=== PATIENT | male | born 1945 | race Caucasian/White ===

== ENCOUNTER → 2016-05-27 | Outpatient (CLI) | payer MEDICARE, BC ==
[~2016-05-27] MED LIST: ALPRAZOLAM1 MG ORAL; NORCO 5-325 TA1 EACH PO
--- NOTE | 2016-05-27 10:42 | Diagnostic Imaging Report ---
Indications:TRAUMA Technique: Three or 4 views of the left elbow Comparison: None Findings:No acute fractures. No dislocations. Joint spaces are preserved. No effusion Impression:Negative
--- NOTE | 2016-05-27 13:35 | Diagnostic Imaging Report ---
Indication: COUGH Technique: 2 views of the chest Comparison: none. Findings: Lungs and pleural spaces are clear. Heart size is normal. Bones are unremarkable. The aorta is elongated and calcified. There are degenerative changes of the thoracic spine. Lungs are somewhat hyperinflated Impression: No acute process Mild hyperinflation, possibly COPD changes
== END | disposition home or self-care (01) ==
LOC: RAD 09:33
DX: R05 Cough (principal); S59.902A Unspecified injury of left elbow, initial encounter; X58.XXXA Exposure to other specified factors, initial encounter; Y92.9 Unspecified place or not applicable
CPT/HCPCS: 71020

== ENCOUNTER 2018-06-01 17:18 | Inpatient (IN) | payer MEDICARE, BC ==
[~2018-06-01] VITALS: Ht 177.8 cm; Wt 77.3 kg
[2018-06-01] MEDS ORDERED: KEPPRA500 M4 ORAL (17:20)
[2018-06-01 17:25] VITALS: BP 113/72
--- NOTE | 2018-06-01 17:25 | NUR ---
ED Nurse Note: PT BROUGHT IN BY R58 FROM HOME. PER EMS, PT HAD A WITNESSED SEIZURE AT HOME. EMS ADMINISTERED VERSED 5MG EN ROUTE. PT CONFUSED UPON ARRIVAL BUT ANSWERING QUESTIONS. VSS. RR24 @ 96% O2 SATURATION. SEIZURE PROTOCOL STARTED.
[2018-06-01] MEDS ORDERED: levETIRAcetam 500 MG in D5W 110 ML IV ONE (17:30)
--- NOTE | 2018-06-01 17:56 | NUR ---
ED Nurse Note: PT IS NOW MORE ALERT: AOX3. PT ABLE TO ANSWER QUESTIONS MORE EASILY. STILL NOT ORIENTED TO TIME BUT IS AWARE OF NAME, DATE, PLACE, AND SITUATION.
[2018-06-01 18:17] LABS: HEMATOCRIT 36.6 % (42.0-52.0); HEMOGLOBIN 13.2 G/DL (14.2-18.0); MEAN CORPUSCULAR VOLUME 97 FL (80-99); PLATELET COUNT 81 K/UL (150-450); RED BLOOD COUNT 3.76 M/UL (4.70-6.10); RED CELL DISTRIBUTION WIDTH 12.3 % (11.6-14.8); WHITE BLOOD COUNT 12.2 K/UL (4.8-10.8)
--- NOTE | 2018-06-01 18:39 | NUR ---
ED Nurse Note: PT AWARE URINE SAMPLE IS NEEDED. URINAL LEFT AT BEDSIDE.
[2018-06-01 18:41] LABS: ANION GAP 14 mmol/L (5-15); BLOOD UREA NITROGEN 48 mg/dL (7-18); CARBON DIOXIDE 23 MMOL/L (21-32); CHLORIDE 103 MMOL/L (98-107); CREATININE 1.1 MG/DL (0.55-1.30); POTASSIUM 4.1 MMOL/L (3.5-5.1); SODIUM 140 MMOL/L (136-145)
[2018-06-01 18:46] LABS: ALANINE AMINOTRANSFERASE 24 U/L (12-78); ALKALINE PHOSPHATASE 57 U/L (46-116); ASPARTATE AMINO TRANSFERASE 8 U/L (15-37); BILIRUBIN,TOTAL 0.4 MG/DL (0.2-1.0)
--- NOTE | 2018-06-01 19:05 | NUR ---
ED Nurse Note: report received from mele sandoval , pt vs stable at bedside, awaiting bed assignment
[2018-06-01 20:04] LABS: APPEARANCE,URINE SLIGHTLY CLOUDY; BILIRUBIN, URINE NEGATIVE (NEGATIVE); COLOR,URINE PALE YELLOW; GLUCOSE, URINE (UA) 3+ (NEGATIVE); KETONES,URINE 1+ (NEGATIVE); LEUKOCYTE ESTERASE ,URINE 3+ (NEGATIVE); NITRITE,URINE NEGATIVE (NEGATIVE); PH,URINE 5 (4.5-8.0); PROTEIN,URINE 2+ (NEGATIVE); UROBILINOGEN,URINE NORMAL MG/DL (0.0-1.0)
--- NOTE | 2018-06-01 20:06 | Emergency Room Report ---
History of Present Illness General Chief Complaint: Seizure Source: Family Member, Medical Record Present Illness HPI Patient is a 72-year-old male brought in by EMS after witnessed seizure. Patient had prior history of seizure disorder. Patient had prior craniectomy for glioblastoma. He was noted to be taking Keppra for seizures. Seizure was noted to be tonic-clonic. Patient had been noted to be postictal. Patient had reportedly been compliant with his medications.Patient had been followed at [facility] and had previous brain surgery. Allergies: Coded Allergies: No Known Allergies (Unverified , 06/01/18) Patient History Past Medical History: see triage record Reviewed Nursing Documentation: PMH: Agreed; PSxH: Agreed Nursing Documentation-PMH Past Medical History: No History, Except For Hx Hypertension: Yes Hx Seizures: Yes - brain tumor Review of Systems All Other Systems: negative except mentioned in HPI Physical Exam Vital Signs Date Time Temp Pulse Resp B/P (MAP) Pulse Ox O2 Delivery O2 Flow Rate FiO2 06/01/18 17:17 97.9 86 18 115/68 100 Room Air Sp02 EP Interpretation: reviewed, normal General Appearance: normal inspection, alert, Chronically Ill Head: atraumatic ENT: normal ENT inspection, normal voice Neck: normal inspection, supple, no bony tend, limited range of motion Respiratory: normal inspection, no respiratory distress, no retraction Cardiovascular #1: regular rate, rhythm, no edema Gastrointestinal: normal inspection, normal bowel sounds, non tender, soft, no guarding, no hernia Genitourinary: no CVA tenderness Musculoskeletal: normal inspection, back normal, normal range of motion Neurologic: normal inspection, alert, responsive, speech normal, motor weakness - slurred speech Psychiatric: normal inspection, judgement/insight normal, mood/affect normal Skin: normal inspection, no rash Medical Decision Making Diagnostic Impression: Primary Impression: Epileptic seizure, generalized Additional Impressions: Glioblastoma Breakthrough seizure ER Course Patient presented for seizure. Differential diagnosis include was not limited to electrolyte abnormality, brain tumor, encephalitis, meningitis among others. Because of complexity of patient's case laboratory testing and imaging studies were ordered. CT imaging of the head read by radiology showed multiple small parietal lesions. These do not appear to have any localization consistent with hemorrhage per radiologistThere is no evident mass- effect.Patient was loaded with IV Keppra and was given IV fluids. Dr. Mason Hickman was contacted for inpatient management due to primary care Labs Test 06/01/18 17:30 06/01/18 19:45 White Blood Count 12.2 K/UL (4.8-10.8) Red Blood Count 3.76 M/UL (4.70-6.10) Hemoglobin 13.2 G/DL (14.2-18.0) Hematocrit 36.6 % (42.0-52.0) Mean Corpuscular Volume 97 FL (80-99) Mean Corpuscular Hemoglobin 35.2 PG (27.0-31.0) Mean Corpuscular Hemoglobin Concent 36.1 G/DL (32.0-36.0) Red Cell Distribution Width 12.3 % (11.6-14.8) Platelet Count 81 K/UL (150-450) Mean Platelet Volume 5.5 FL (6.5-10.1) Neutrophils (%) (Auto) % (45.0-75.0) Lymphocytes (%) (Auto) % (20.0-45.0) Monocytes (%) (Auto) % (1.0-10.0) Eosinophils (%) (Auto) % (0.0-3.0) Basophils (%) (Auto) % (0.0-2.0) Differential Total Cells Counted 100 Neutrophils % (Manual) 64 % (45-75) Lymphocytes % (Manual) 27 % (20-45) Monocytes % (Manual) 8 % (1-10) Eosinophils % (Manual) 0 % (0-3) Basophils % (Manual) 1 % (0-2) Band Neutrophils 0 % (0-8) Platelet Estimate Decreased Platelet Morphology Normal Red Blood Cell Morphology Normal Sodium Level 140 MMOL/L (136-145) Potassium Level 4.1 MMOL/L (3.5-5.1) Chloride Level 103 MMOL/L (98-107) Carbon Dioxide Level 23 MMOL/L (21-32) Anion Gap 14 mmol/L (5-15) Blood Urea Nitrogen 48 mg/dL (7-18) Creatinine 1.1 MG/DL (0.55-1.30) Estimat Glomerular Filtration Rate mL/min (>60) Glucose Level 190 MG/DL (74-106) Calcium Level 9.0 MG/DL (8.5-10.1) Total Bilirubin 0.4 MG/DL (0.2-1.0) Aspartate Amino Transf (AST/SGOT) 8 U/L (15-37) Alanine Aminotransferase (ALT/SGPT) 24 U/L (12-78) Alkaline Phosphatase 57 U/L (46-116) Total Protein 6.0 G/DL (6.4-8.2) Albumin 3.0 G/DL (3.4-5.0) Globulin 3.0 g/dL Albumin/Globulin Ratio 1.0 (1.0-2.7) Phenytoin (Dilantin) Level < 0.5 ug/mL (10-20) Urine Color Pale yellow Urine Appearance Slightly cloudy Urine pH 5 (4.5-8.0) Urine Specific [place] 1.020 (1.005-1.035) Urine Protein 2+ (NEGATIVE) Urine Glucose (UA) 3+ (NEGATIVE) Urine Ketones 1+ (NEGATIVE) Urine Blood 4+ (NEGATIVE) Urine Nitrite Negative (NEGATIVE) Urine Bilirubin Negative (NEGATIVE) Urine Urobilinogen Normal MG/DL (0.0-1.0) Urine Leukocyte Esterase 3+ (NEGATIVE) Urine RBC 5-10 /HPF (0 - 0) Urine WBC 5-10 /HPF (0 - 0) Urine Squamous Epithelial Cells None /LPF (NONE/OCC) Urine Bacteria Moderate /HPF (NONE) Urine Opiates Screen Negative (NEGATIVE) Urine Barbiturates Screen Negative (NEGATIVE) Phencyclidine (PCP) Screen Negative (NEGATIVE) Urine Amphetamines Screen Negative (NEGATIVE) Urine Benzodiazepines Screen Positive (NEGATIVE) Urine Cocaine Screen Negative (NEGATIVE) Urine Marijuana (THC) Screen Negative (NEGATIVE) Last Vital Signs Date Time Temp Pulse Resp B/P (MAP) Pulse Ox O2 Delivery O2 Flow Rate FiO2 06/01/18 17:25 98.2 72 22 113/72 96 Room Air Status: unchanged Disposition: PLACE IN OBSERVATION Condition: Stable Referrals: Mason Hickman MD (PCP) Dilip Morgan MD Jun 01, 2018 20:06
--- NOTE | 2018-06-01 21:40 | NUR ---
ED Nurse Note: attempted to call for telephone unable to report
--- NOTE | 2018-06-01 21:46 | NUR ---
ED Nurse Note: TELEPHONE REPORT GIVE TO VLAD MCKENZIE.
--- NOTE | 2018-06-01 22:00 | NUR ---
ED Nurse Note: PT BROUGHT UP WITH CARIDAC MONITOR ASSISTED BY MARGARET RN AND VLAD SIMMS. ALL BELONING GIVEN TO PT, PT IS AOX4, VSS, ROOM AIR 100%
--- NOTE | 2018-06-01 22:10 | NUR ---
NURSE NOTES: Pt transferred safely to floor from ED. Pt belongings verified. monitor tech applied and pt is sinus rhythm in the 70s. Pt is lying comfortably in semi-fowlers with no signs of distress. Pt is A+Ox3, has difficulty speaking, delayed, but denies pain/SOB. Respirations are even and unlabored on room air. IV site is patent, intact, and saline locked. Bed is at lowest position, brakes engaged, siderails x2, bed alarm on, and call light within reach. Pt is in stable condition; will continue to monitor.
--- NOTE | 2018-06-01 22:34 | NUR ---
NURSE NOTES: Left message with Dr. Hickman regarding admission orders; awaiting response.
[2018-06-01] MEDS: 1/2NS w/KCl 20mEq 1000ml 1,000 ML IV SCH (23:53)
[2018-06-02] VITALS: BP 132/78
--- NOTE | 2018-06-02 00:54 | NUR ---
NURSE NOTES: Pt is trying to get out of bed. States "I need to pee, but can't pee!" Attempted to help patient to walk, but pt is too weak and is too big a fall risk. Told patient he should not get up from bed for safety reasons. Pt continues to try to get out of bed. Bladder scan shows 700 ml urine in the bladder. Left message with Dr. Hickman to make him aware of his behavior and bladder scan results; awaiting response.
--- NOTE | 2018-06-02 01:04 | NUR ---
NURSE NOTES: Pt is agitated and anxious to urinate. Keeps trying to get out of bed. Left second message with Dr. Hickman; awaiting response.
--- NOTE | 2018-06-02 01:06 | NUR ---
NURSE NOTES: Per MD, insert molina catheter. Order noted and carried out.
--- NOTE | 2018-06-02 02:00 | NUR ---
NURSE NOTES: Left message with Dr. Hickman regarding no DVT prophylaxis. Awaiting response.
[2018-06-02 04:00] VITALS: BP 150/87
--- NOTE | 2018-06-02 07:16 | NUR ---
HAND-OFF: Report given to VLAD Mcgovern. Pt is in stable condition; plan of care endorsed.
--- NOTE | 2018-06-02 07:28 | NUR ---
NURSE NOTES: Report received from Christine/ VLAD. patient in stable condition, no distress/SOB noted. call light in reach, bed in low position, All safety measure in place. will continue plan of care.
[2018-06-02 08:00] VITALS: BP 135/79
--- NOTE | 2018-06-02 08:51 | Diagnostic Imaging Report ---
Indications: Altered mental state, seizure Technique: Spiral acquisitions obtained through the brain. Angled axial and coronal 5 x 5 mm slices were reconstructed. Total dose length product 1512.17 mGycm. CTDI vol(s) 70.38 mGy. Dose reduction achieved using automated exposure control Comparison: 05/16/2013. Findings: There is a left parietal craniotomy flap. Thin rim of low attenuation material is seen on the deep surface of the flap. There is underlying posterior parietal encephalomalacia, resulting in ex vacuo dilatation of the atrium and posterior temporal horn of the left lateral ventricle. There is some slight cortical encephalomalacia in the high right parietal lobe. There is slight high attenuation in this area which may either be cortical or within the sulci. These are new findings since the prior study. No mass effect. No midline shift. Otherwise normal malhotra-white differentiation. Streak artifact from dental amalgam obscures much of the posterior fossa structures. There is a subcutaneous 3 cm lesion in the occipital region midline. This is also present on the prior exam. Previously demonstrated right periorbital scalp soft tissue contusion is no longer evident. There is minimal mucosal thickening within the nasal fossa. The sinuses are otherwise clear. There is evidence of prior bilateral cataract surgery. The mastoids are clear. Impression: Foci of high attenuation in the high right parietal region noted adjacent to a small focal area of encephalomalacia. Findings could represent calcification, but could also represent small foci of subarachnoid or cortical parenchymal hemorrhage. Recommend further evaluation with MRI and or comparison with any more recent CT studies which may be available. No significant mass effect Postsurgical changes of the left parietal region, with craniotomy flap and underlying encephalomalacia. Correlate with surgical history. Probable occipital midline epidermal inclusion cyst, also evident previously This agrees with the preliminary interpretation provided overnight by [facility] telerad[facility] service. The CT scanner at [facility] is accredited by the [employer] and the scans are performed using protocols designed to limit radiation exposure to as low as reasonably achievable to attain images of sufficient resolution adequate for diagnostic evaluation.
[2018-06-02] MEDS: 1/2NS w/KCl 20mEq 1000ml 1,000 ML IV SCH ×2 (09:16→18:50)
--- NOTE | 2018-06-02 09:25 | NUR ---
NURSE NOTES: Patient had seizure for 3 sec. patient is alert and oriented x2. vital sign is stable.
--- NOTE | 2018-06-02 09:35 | NUR ---
NURSE NOTES: Called Dr. Hickman and left a message with the marketing secretary regarding seizure activity.
--- NOTE | 2018-06-02 10:10 | NUR ---
NURSE NOTES: Dr. Hickman called, but we lost the line and I wasn't able to talk to him. I called back and left message.
--- NOTE | 2018-06-02 10:20 | NUR ---
NURSE NOTES: Patient had [address] Hickman and left message. Addendum: 06/02/18 at 1031 by Isabelle Coates RN wrong time entry
--- NOTE | 2018-06-02 10:29 | NUR ---
NURSE NOTES: Talked with Dr. Hickman and Salvador 500mg IV x1, No ativan PRN at this time. No DVT PPX. Patient is in stable condition. Will continue plan of care.
[2018-06-02] MEDS ORDERED: levETIRAcetam 500mg/NS100ml 100 ML IVPB ONE (11:00)
[2018-06-02] MEDS: NovoLOG Insulin Flexpen SUBQ SCH ×3 (11:30→22:09)
[2018-06-02] MEDS ORDERED: NovoLOG Insulin Flexpen SUBQ SCH (11:50)
[2018-06-02 12:00] VITALS: BP 132/77
--- NOTE | 2018-06-02 13:18 | NUR ---
NURSE NOTES: told that patient is still having seizure like 4 times an hour but less intensity, duration like [address] Hickman's office and left message.
--- NOTE | 2018-06-02 13:36 | NUR ---
NURSE NOTES: Talked with Dr. Hickman and new orders carried out. Will continue plan of care.
--- NOTE | 2018-06-02 13:39 | NUR ---
CASE MANAGEMENT:REVIEW 72 YR OLD MALE BIBA FROM HOME CC; WITNESSED SEIZURE BY SI: BREAKTHROUGH SEIZURE 97.8 86 18 115/68 100% ON RA WBC+12.2 DILANTIN > 0.5 IS: 1L NS BOLUS IV KEPPRA CT HEAD BLOOD CX SEIZURE PRECAUTION ; TELEMETRY STATUS ; INTERQUAL MET FOR OBSERVATION
--- NOTE | 2018-06-02 14:00 | NUR ---
NURSE NOTES: Prudence told me while patient was trying to get up from the bed and the right leg was stuck in the side rail. Assessed patient and noted with right fairchild skin abrasion. Photo was taken. Patient is confused and is at the bedside. asked for Wheelchair and I told her that he can not have w/c due to seizure activity. Will continue plan of care. Addendum: 06/02/18 at 1501 by JACKI TORO RN Time for 1430.
--- NOTE | 2018-06-02 14:50 | NUR ---
NURSE NOTES: Called Dr. Hickman's office for agitation and paged him.
[2018-06-02] MEDS ORDERED: levETIRAcetam 1,000mg/NS100ml 100 ML IVPB SCH (15:00)
--- NOTE | 2018-06-02 15:15 | NUR ---
NURSE NOTES: Talked with Dr. Hickman. Ativan 0.5mg IV x1 is ordered. Will continue plan of care.
[2018-06-02] MEDS ORDERED: LORazepam Inj 2mg/ml 1ml IV SCH (15:19)
--- NOTE | 2018-06-02 15:25 | NUR ---
NURSE NOTES: Ativan was given as ordered. Will continue plan of care.
[2018-06-02 16:00] VITALS: BP 147/85
--- NOTE | 2018-06-02 19:35 | NUR ---
HAND-OFF: Report given to VLAD Foster. Soham is in stble condition. Endorsed plan of care.
[2018-06-02 20:00] VITALS: BP 145/81
--- NOTE | 2018-06-02 20:00 | NUR ---
NURSE NOTES: recieved pt, pt very agitated and trying to get out of bed. no acute distress noted. fall precaution in place. will continue to monitor.
--- NOTE | 2018-06-02 20:10 | NUR ---
NURSE NOTES: Called Dr. Hickman for a possible restraint order since patient is observed to be repeatedly attempting to get out of bed. Awaiting callback.
[2018-06-02] MEDS: levETIRAcetam 1,500 MG in D5W 95 ML IV SCH (22:07)
[2018-06-03] VITALS: BP 126/76
--- NOTE | 2018-06-03 | History and Physical Report ---
DATE OF ADMISSION: 06/01/2018 REASON FOR ADMISSION: Breakthrough seizures. HISTORY OF PRESENT ILLNESS: This is a 72-year-old male with the diagnosis of glioblastoma multiforme from approximately six months ago. He underwent surgery and radiation therapy. Most recently, he is on oral chemotherapy, but that has been on hold due to lower platelet count. He also was noted on his most recent imaging study to have progression of his tumor. He was started on Keppra several months ago following a seizure event. He has not had any breakthrough seizures during the last month or more, but did have an event early this evening prompting transfer to the emergency room. The patient's states that he has been compliant with medications. His seizure was described as tonic-clonic and similar to prior witnessed event. PAST MEDICAL HISTORY: Includes hypertension, CLL, history of melanoma of the skin, osteoarthritis, degenerative disk disease, and hyperlipidemia. Insulin-requiring diabetes mellitus. ALLERGIES: None. FAMILY HISTORY: Notable for leukemia. SOCIAL HISTORY: Negative for smoking, alcohol, or substance abuse. MEDICATIONS: Reviewed and reconciled. REVIEW OF SYSTEMS: No fevers or chills. No dysuria. Occasional incontinence. No change in bowel habits. No history of thyroid disorder. Most recent echocardiogram with normal ejection fraction and no significant valvular disease. Prior stress tests have been low likelihood for flow-limiting coronary artery disease. There is no history of asthma or abnormal blood clotting. He has had low platelet count with his recent chemotherapeutic drugs. PHYSICAL EXAMINATION: VITAL SIGNS: Blood pressure 115/68, pulse 86, and respirations 18. Afebrile. Male pattern balding. HEENT: Conjunctivae pink. Fundi difficult to visualize. The patient is unable to fully cooperate with extraocular movement evaluation. Oropharynx is clear. NECK: Supple. Jugular venous pressure normal. LUNGS: Clear. CARDIAC: Regular. Normal S1, S2 with a fourth heart sound. ABDOMEN: Soft and nontender. EXTREMITIES: No edema. NEUROLOGIC: Reveals unsteady gait. Slow speech. Some confusion. LABORATORY DATA: Sodium 140, potassium 4.1, bicarbonate 23, BUN 48, and creatinine 1.1. Glucose 190. Albumin 3. White count 12.2, hemoglobin 13.2. CT scan of the brain reveals postsurgical changes on the left parietal area, some encephalomalacia. IMPRESSION: 1. Breakthrough seizures. 2. Mild dehydration and hypovolemia. 3. Prerenal azotemia. 4. Glioblastoma multiforme. 5. Hypertension. 6. History of chronic lymphocytic leukemia. PLAN: 1. Advance Keppra dosing. 2. IV lorazepam p.r.n. for status epilepticus. 3. Cautiously hydrate. 4. Discussed with neurologist, Dr. Jose Greene. We will review ongoing treatment options with his neurosurgeon at [facility]. Mason Hickman M.D. DR: LES JOB#: [id number] CC:
[2018-06-03] MEDS: LORazepam Inj 2mg/ml 1ml IV PRN ×2 (01:15→09:46)
--- NOTE | 2018-06-03 02:00 | Progress Note ---
DATE: 06/02/2018 INTERNAL MEDICINE PROGRESS NOTE SUBJECTIVE: The patient was seen and evaluated. is at the bedside earlier and on and off throughout the day. Case was also discussed by telephone with neurologist, Dr. Greene. The patient has had recurring episodes of breakthrough seizures despite loading with intravenous Keppra at an increased dose from his prior dose. He has frequent confusion and does not want to stay in bed. OBJECTIVE: VITAL SIGNS: Blood pressure 140/70, pulse 80, and respirations 20. NECK: Supple. Jugular venous pressure normal. LUNGS: Clear. CARDIAC: Regular. Normal S1, S2 with a fourth heart sound. ABDOMEN: Soft and nontender. EXTREMITIES: Without edema. NEUROLOGIC: Unchanged. IMPRESSION: 1. Tonic-clonic seizures due to glioblastoma multiforme. 2. History of CLL. 3. Thrombocytopenia due to chemotherapy. 4. Recovering dehydration and hypovolemia. 5. Encephalopathy. 6. Urinary retention. PLAN: 1. Additional intravenous Keppra with maintenance dose advancement. 2. Seizure precautions. 3. IV fluid hydration. 4. Check metabolic profile. 5. Outpatient neurosurgery follow up. 6. May give benzodiazepine dose for agitation. 7. Voiding trial to follow. Mason Hickman M.D. DR: JOSIANE JOB#: [id number] CC: JESSICA
--- NOTE | 2018-06-03 03:50 | NUR ---
NURSE NOTES: pt trying to get out of bed, this commercial real estate underwriter sitting next to pt to prevent any fall. no acute distress noted, will continue to monitor.
[2018-06-03 04:00] VITALS: BP 148/90
[2018-06-03] MEDS: 1/2NS w/KCl 20mEq 1000ml 1,000 ML IV SCH ×2 (04:48→20:33)
[2018-06-03] MEDS: NovoLOG Insulin Flexpen SUBQ SCH ×4 (05:46→21:00)
--- NOTE | 2018-06-03 07:26 | NUR ---
HAND-OFF: Report given to VLAD Jauregui.pt in bed. pt trying to get out of bed my entire shift. fall precautions in place. all needs met during my shift. will endorse care to incoming nurse
[2018-06-03 07:39] LABS: HEMATOCRIT 38.2 % (42.0-52.0); HEMOGLOBIN 14.3 G/DL (14.2-18.0); MEAN CORPUSCULAR VOLUME 96 FL (80-99); PLATELET COUNT 75 K/UL (150-450); RED BLOOD COUNT 3.99 M/UL (4.70-6.10); RED CELL DISTRIBUTION WIDTH 12.3 % (11.6-14.8); WHITE BLOOD COUNT 7.5 K/UL (4.8-10.8)
[2018-06-03 08:00] VITALS: BP 142/79
[2018-06-03 08:27] LABS: ALANINE AMINOTRANSFERASE 22 U/L (12-78); ALBUMIN 2.9 G/DL (3.4-5.0); ALBUMIN/GLOBULIN RATIO 0.9 (1.0-2.7); ALKALINE PHOSPHATASE 62 U/L (46-116); ANION GAP 9 mmol/L (5-15); ASPARTATE AMINO TRANSFERASE 14 U/L (15-37); BILIRUBIN,TOTAL 1.2 MG/DL (0.2-1.0); BLOOD UREA NITROGEN 11 mg/dL (7-18); CALCIUM 8.8 MG/DL (8.5-10.1); CARBON DIOXIDE 27 MMOL/L (21-32); CHLORIDE 103 MMOL/L (98-107); CREATININE 0.6 MG/DL (0.55-1.30); POTASSIUM 3.3 MMOL/L (3.5-5.1); SODIUM 139 MMOL/L (136-145)
[2018-06-03 08:44] LABS: BILIRUBIN,DIRECT 0.1 MG/DL (0.0-0.3)
[2018-06-03] MEDS: levETIRAcetam 1,500 MG in D5W 95 ML IV SCH ×2 (09:46→20:33)
[2018-06-03 16:00] VITALS: BP 135/75
--- NOTE | 2018-06-03 16:00 | NUR ---
NURSE NOTES: Discus with Dr Greene at bedside pt's repeated attempts to exit bed. Dr Greene agreed to write order for lopez restraint allowing pt to use his hands/arms but not exit bed. Restraints explained to at bedside during application. Good distal fns all extrem. no impingement to pt's respiration.
--- NOTE | 2018-06-03 16:09 | Consultation ---
Consult Note Consult Note [facility] NEUROLOGY CONSULTATION June 03, 2018 PRETZEL TWISTING MACHINE OPERATOR: Jose Greene M.D. REFERRING PHYSICIAN: Dr. Mason Hickman. HISTORY: Mr. Irvin Owen is a 72-year-old,right-handed, gentleman, who does have a past history of hypertension, hypertensive heart disease, benign prostatic hypertrophy, chronic lymphocytic leukemia, a skin melanoma status post resection in 2010 with remission, who also has a history of a stutter. He was functioning relatively well until [facility]2017, and on that day he was noted to have a sudden problem with expressing himself. Plans were to go to [place], and he went there with his family, but his family noted that he was having worsening of his language problems. As a result of that, he flew back to [place]. He was seen by Domi and Driss in their office on 01/06/2018, and was noted to have a significant aphasia. He was rushed into the [facility] Emergency Room where an MRI scan of the brain was done and revealed a large heterogeneous mass in the left periatrial white matter, with surrounding vasogenic edema. In addition, tumor infiltration of the body of the corpus callosum with satellite lesions in the right parietal and right occipital lobes was seen. A radiological diagnosis of multifocal glioma was made. He was then evaluated by the neurosurgical service, and on 01/07/2018 he was taken into the operation room by Drs. Daniel Reyes and Joel Solorzano. He had a left parietal craniotomy for resection of the tumor and it was felt that the tumor was most probably a glioblastoma. The surgery was uneventful. Following the surgeryhe was noted to have slight worsening of his language problems. He had not been noted to have any weakness or other neurological symptoms. I first saw him on 01/08/18, at that time, he had a severe receptive greater than expressive aphasia. He was unable to cooperate for formal mental status test because of the significant aphasia. He also had a mild right 7th central facial paresis, right finger extensor and iliopsoas weakness,andglobally diminisheddeep tendon reflexes that were slightly brisker on the right than on the left. He was then sent to [place] for rehabilitation. He did well with rehabilitation. He was also seen by Dr. Anurag Johnson who started him on a course of radiation therapy and chemotherapy. On 04/19/2018 he was noted to have a generalized tonic clonic seizure at home. The paramedics were called in and he was brought to the ER and admitted to the neurologic ICU. He had continuous EEG monitoring for 2 days and the EEG revealed "mild diffuse background slowing and left focal slowing." No inter-ictal phenomena were seen. He had been seizure-free on Keppra 1 G q 12 hours. On 06/01/2018 he had a generalized tonic clonic seizure at home. He was brought to [facility] and admitted. On 06/02/2018 he had a few more seizures. His dose of Keppra was increased to 1.5 G q 12 hours and he has been seizure-free for ~ 24 hours. He however has been very agitated and is getting Ativan for it which agitates him more, PAST MEDICAL HISTORY:Significant for hypertension, hypertensive heart disease, benign prostatic hypertrophy, chronic lymphocytic leukemia, skin melanoma-status post resection in 2010, a stutter, glioblastoma, tumor related seizure disorder. FAMILY HISTORY:Nothing significant, with no family history of tumors. PERSONAL HISTORY: Home:He lives with his . 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 Habits: He would have rare cigarettes and a rare drink of alcohol in the past. There is no history of any illicit drug use. PHYSICAL EXAMINATION: GENERAL: He is a well-developed, well-nourished, pleasant gentleman, lying in bed, in no acute distress. VITAL SIGNS: Pulse: 95 BP: 148/90 Respirations: 20 Temp: 97.2 NECK: No neck rigidity was observed. EENT: Benign. NEUROLOGICAL EXAMINATION: MENTAL STATUSEXAMINATION: He was awake but not completely alert. He was oriented to self and May 2018. He was able to recall 3/3 words immediately but could only remember 1/3 in 1 and 3 minutes. He was unable to remember any [place] presidents. He was unable to cooperate for further mental status testing. SPEECH:He had a mild dysarthria. LANGUAGE: He had amixed expressive > receptive aphasia. CRANIAL NERVEEXAMINATION: II: He did blink to threat in all dhillon, but he was unable to cooperate for confrontation testing. III, IV & : The external ocular movements were full and the pupils 3 mm in diameter, equal, round, regular, and reactive sluggishly to light. V: He had normal facial sensations and the temporales, masseters, and pterygoids functioned normally. VII: He had a right 7th central facial paresis. VIII: He was able to hear and had no nystagmus. IX: The palate moved symmetrically on phonation. X: He had no hoarseness of voice. XI: The sternocleidomastoids and trapezii functioned normally. XII: The tongue was in the midline without any fasciculations or atrophy. MOTOR SYSTEM:The tone was normal in all 4 extremities. Examination of muscle mass revealed no focal wasting. Examination of power revealedG5/5 power, except for G4/5 power in the right finger extensors and iliopsoas. SENSORYEXAMINATION: He responded appropriately to light touch. He was unable to cooperate for other sensory modalities. REFLEXES: 1++ on the right and 1+ on the left at the biceps, triceps, brachioradialis, and knees; 0 at both ankles. The plantar responses were flexor bilaterally. COORDINATION: He performed well on blrjtz-ji-[id number] testing. He was unable to perform fsyz-zu-oasi testing. STANCE: He stood up with support. GAIT: He dragged his right leg when he was made to take a few steps. DIAGNOSTIC IMPRESSION: 1. Mr. Irvin Owen is a 72-year-old,right-handed, gentleman, with a past history of hypertension, hypertensive heart disease, benign prostatic hypertrophy, chronic lymphocytic leukemia, and a skin melanoma, who has also had a stutter all his life. He suddenly had problems expressing himself and these problems worsened over the next few days. He was evaluated in the [facility] Emergency Room on 01/06/2018 with an MRI scan of the brain which revealed findings consistent with a relatively large left parietal glioma with surrounding vasogenic edema and satellite lesions in the right parietal and occipital lobes. He was taken into surgery on 01/07/2018 with near-complete resection of the tumor mass. The surgery was uneventful. He was then sent to [place] for rehabilitation. He did well with rehabilitation. He was also seen by Dr. Anurag Johnson who started him on a course of radiation therapy and chemotherapy. On 04/19/2018 he was noted to have a generalized tonic clonic seizure at home. He was brought to the , a continuous EEG monitoring for 2 days revealed "mild diffuse background slowing and~left focal slowing." No inter-ictal phenomena were seen. He was then seizure-free on Keppra 1 G q 12 hours. 2. On 06/01/2018 he had a generalized tonic clonic seizure at home. He was brought to [facility] and admitted. On 06/02/2018 he had a few more seizures. His dose of Keppra was increased to 1.5 G q 12 hours and he has been seizure-free for ~ 24 hours. 3. On neurological examination, at this time, he does have a mixed expressive > receptive aphasia. He also has significant cognitive dysfunction.He also has a right 7th central facial paresis, right finger extensor and iliopsoas weakness,andglobally diminisheddeep tendon reflexes that are slightly brisker on the right than on the left. 4. 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 5. He started to have breakthrough seizures on 06/01/08. RECOMMENDATIONS: 1. Agree with management thus far. 2. Management of brain tumor as per the patient's neurosurgeons and Dr. Johnson. 3. Continue Keppra 1.5 G q 12 hours. 4. Physical, occupational, speech and language therapy. 5. The patient will be observed closely, and depending on how he fares over the next day or so, further recommendations will be given. Thank you for entrusting me with the care of Mr. Owen. I shall follow him with you. Jose Greene M.D., M.S.P.H. Neurologist & Clinical Neurophysiologist Jose Greene MD Jun 03, 2018 16:09
--- NOTE | 2018-06-03 19:30 | NUR ---
NURSE NOTES: Got report from Casey Rn. Pt in stable condition. Denies any pain. No s/s of distress noted. Pt resting in bed comfortably. Lycoming vest on. Bed in low and locked position, call light within reach, bedside table within reach.Continue to monitor.
[2018-06-03 20:00] VITALS: BP 143/90
[2018-06-03] MEDS ORDERED: Tubing IV Secondary IV ONE (20:32)
[2018-06-03] MEDS ORDERED: 1/2NS w/KCl 20mEq 1000ml 1,000 ML IV SCH (22:45)
[2018-06-04] VITALS (7 sets, daily range): BP systolic 86–153; BP diastolic 53–90
[2018-06-04] MEDS: LORazepam Inj 2mg/ml 1ml IV PRN ×2 (00:04→05:58)
--- NOTE | 2018-06-04 01:30 | Progress Note ---
DATE: 06/03/2018 CARDIOLOGY AND INTERNAL MEDICINE PROGRESS NOTE SUBJECTIVE: The patient had a small seizure today that lasted a few seconds. It was witnessed by his only. The patient is still with agitation and confusion. The patient has not had any arrhythmias on the monitor. PHYSICAL EXAMINATION: VITAL SIGNS: Blood pressure 148/90, pulse 95, respiratory rate 20, afebrile. NECK: Supple. LUNGS: Clear. CARDIAC: Regular. Normal S1, S2 with a fourth heart sound. ABDOMEN: Soft. No edema. NEUROLOGIC: Motor exam reveals symmetric strength. Speech is with a mild dysarthria and expressive deficit. Gait is unsteady. LABORATORY DATA: White count 7.5, hemoglobin 14, potassium 3.3, magnesium 1.8. Albumin 2.9. B12 folate were normal. IMPRESSION: 1. Breakthrough seizures. 2. Glioblastoma multiforme. 3. Hypokalemia. 4. Chronic lymphocytic leukemia. 5. History of hypertension. 6. Urinary retention with hx of BPH. PLAN: 1. Seizure precautions. 2. Titrate Keppra. 3. Vitamin supplementation. 4. Replace potassium. 5. Voiding trial. 6. Mobilize and continue restraints for safety at times. Mason Hickman M.D. DR: CYNDIE JOB#: [id number] CC: JESSICA
[2018-06-04] MEDS: NovoLOG Insulin Flexpen SUBQ SCH ×4 (06:30→21:49)
--- NOTE | 2018-06-04 07:20 | NUR ---
HAND-OFF: Report given to Casey CHU. Endorsed plan of care.
--- NOTE | 2018-06-04 08:00 | NUR ---
NURSE NOTES: Pt awake/not alert/confused in bed, breathing easily on room air, denies SOB and denies pain at this time. Vital signs stable with SR at 87 on monitor. IV access right forearm with 1/2 NS + 20K running at 60 ml/hr. bilateral soft wrist in place with good distal functions. Bed left in low position, exit alarm set, side rails up x 3 and call light left near pt's hand.
[2018-06-04] MEDS: levETIRAcetam 1,500 MG in D5W 95 ML IV SCH ×2 (09:58→21:27)
[2018-06-04] MEDS: 1/2NS w/KCl 20mEq 1000ml 1,000 ML IV SCH (13:35)
--- NOTE | 2018-06-04 15:20 | Neurology Progress Note ---
Interim History Interim History Interim History Mr. Owen feels unwell. He is severely constipated and on the bedside commode. He has been seizure free. He continues to be confused, disoriented and agitated. He is unable to give me any further history. Review of Systems Neuro Review of Systems Unable to obtain. Objective Physical Exam Last Vital Signs Date Time Temp Pulse Resp B/P (MAP) Pulse Ox O2 Delivery O2 Flow Rate FiO2 06/04/18 13:50 97.5 111 20 142/89 (106) 96 06/03/18 21:00 Room Air Neurologic Exam Objective PHYSICAL EXAMINATION: GENERAL: He is a well-developed, well-nourished, pleasant gentleman, sitting up on a bedside commode, in no acute distress. HEAD: Normocephalic with left sided craniotomy defect. NECK: No neck rigidity was observed. EENT: Benign. NEUROLOGICAL EXAMINATION: MENTAL STATUSEXAMINATION: He was awake but not completely alert. He was oriented to self and May 2018. He was able to recall 3/3 words immediately but could only remember 1/3 in 1 and 3 minutes. He was unable to remember any [place] presidents. He was unable to cooperate for further mental status testing. SPEECH:He had a mild dysarthria. LANGUAGE: He had amixed expressive > receptive aphasia. CRANIAL NERVEEXAMINATION: II: He did blink to threat in all dhillon, but he was unable to cooperate for confrontation testing. III, IV & : The external ocular movements were full and the pupils 3 mm in diameter, equal, round, regular, and reactive sluggishly to light. V: He had normal facial sensations and the temporales, masseters, and pterygoids functioned normally. VII: He had a right 7th central facial paresis. VIII: He was able to hear and had no nystagmus. IX: The palate moved symmetrically on phonation. X: He had no hoarseness of voice. XI: The sternocleidomastoids and trapezii functioned normally. XII: The tongue was in the midline without any fasciculations or atrophy. MOTOR SYSTEM:The tone was normal in all 4 extremities. Examination of muscle mass revealed no focal wasting. Examination of power revealedG5/5 power, except for G4/5 power in the right finger extensors and iliopsoas. SENSORYEXAMINATION: He responded appropriately to light touch.He was unable to cooperate for other sensory modalities. REFLEXES: 1++ on the right and 1+ on the left at the biceps, triceps, brachioradialis, and knees; 0 at both ankles. The plantar responses were flexor bilaterally. COORDINATION: He performed well on pislwi-tq-beby testing.He was unable to perform wdfm-ij-ylbw testing. STANCE: He stood up with support. GAIT: He dragged his right leg when he was made to take a few steps. Impression/Recommendations Diagnostic Impression 1. Mr. Irvin Owen is a 72-year-old,right-handed, gentleman, with a past history of hypertension, hypertensive heart disease, benign prostatic hypertrophy, chronic lymphocytic leukemia, and a skin melanoma, who has also had a stutter all his life. He suddenly had problems expressing himself and these problems worsened over the next few days. He was evaluated in the [facility] Emergency Room on 01/06/2018 with an MRI scan of the brain which revealed findings consistent with a relatively large left parietal glioma with surrounding vasogenic edema and satellite lesions in the right parietal and occipital lobes. He was taken into surgery on 01/07/2018 with near- complete resection of the tumor mass. The surgery was uneventful. He was then sent to [facility] for rehabilitation. He did well with rehabilitation. He was also seen by Dr. Anurag Johnson who started him on a course of radiation therapy and chemotherapy. On 04/19/2018 he was noted to have a generalized tonic clonic seizure at home. He was brought to the , a continuous EEG monitoring for 2 days revealed "mild diffuse background slowing and left focal slowing." No inter -ictal phenomena were seen. He was then seizure-free on Keppra 1 G q 12 hours. 2. On 06/01/2018 he had a generalized tonic clonic seizure at home. He was brought to [facility] and admitted. On 06/02/2018 he had a few more seizures. His dose of Keppra was increased to 1.5 G q 12 hours and he has been seizure-free since then. 3. He feels unwell. He is severely constipated and on the bedside commode. He has been seizure free. He continues to be confused, disoriented and agitated. He is unable to give me any further history. 4. On neurological examination, at this time, he does have a mixed expressive > receptive aphasia. He also has significant cognitive dysfunction.He also has a right 7th central facial paresis, right finger extensor and iliopsoas weakness, andglobally diminisheddeep tendonreflexes that are slightly brisker on the right than on the left. 5. 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 6. He started to have breakthrough seizures on 06/01/08 but has been seizure- free since 06/02/18. 7. His behavioral problems are still a problem. Recommendations 1. Continue present management. 2. Management of brain tumor as per the patient's neurosurgeons and Dr. Johnson. 3. Continue Keppra 1.5 G q 12 hours. 4. Will have to start Seroquel 25 mg q 20:00. 5. Refrain from use of Ativan. 6. Physical, occupational, speech and language therapy. Jose Greene M.D., M.S.P.H. Neurologist & Clinical Neurophysiologist Jose Greene MD Jun 04, 2018 15:20
--- NOTE | 2018-06-04 16:10 | NUR ---
PT Note PT evangelina completed, treatment initiated. Patient was able to ambulated with a FWW x 100 ft. Patient can benefit from PT services to increase his muscle strength, ROM and balance to improve his functional mobility and gait. Addendum: 06/04/18 at 1611 by FELA BAHENA PT Amended: Links added.
[2018-06-04] MEDS: Docusate 100mg cap ORAL SCH (18:12)
--- NOTE | 2018-06-04 19:30 | NUR ---
NURSE NOTES: Report received from VLAD Peña. Pt is lying comfortably in semi fowlers with no signs of distress. Pt is A+Ox2 and denies pain/ SOB. No IV site at this time; will insert shortly. Respirations are even and unlabored on room air. Cordero is in place, patent, and draining to gravity at foot of bed. Bilateral soft wrist restraints in place with no sign of skin breakdown. Bed is at lowest position, brakes engaged, siderails x2, bed alarm on, and call light within reach. Pt is in stable condition at this time; will continue to monitor.
[2018-06-04] MEDS: Tamsulosin 0.4mg cap ORAL SCH (21:26)
[2018-06-04] MEDS: ceFAZolin sod 1 GM in D5W 55 ML IVPB SCH (21:40)
[2018-06-05] VITALS: BP 152/108
[2018-06-05] MEDS: ceFAZolin sod 1 GM in D5W 55 ML IVPB SCH ×3 (02:19→17:10)
[2018-06-05 04:00] VITALS: BP 148/93
--- NOTE | 2018-06-05 04:06 | NUR ---
NURSE NOTES: Left message with Dr. Hickman regarding pt's heart rate increased at 15 bpm. Pt is sinus. Awaiting response.
[2018-06-05] MEDS ORDERED: Atenolol 25mg tab ORAL ONE (04:30)
--- NOTE | 2018-06-05 05:15 | Progress Note ---
DATE: 06/04/2018 INTERNAL MEDICINE PROGRESS NOTE SUBJECTIVE: No new seizures for the past 24 hours. He still feels weak, confused at times. He is constipated, but was able to have a bowel movement later in the morning. He has not been able to void since the catheter was removed last night. OBJECTIVE: VITAL SIGNS: Blood pressure 142/89, pulse 111, respiratory rate 20, and afebrile. NECK: Supple. LUNGS: Clear. CARDIAC: Regular. Normal S1 and S2 with fourth heart sound. ABDOMEN: Soft . EXTREMITIES: No edema. weakness. IMPRESSION: 1. Seizure disorder. 2. Encephalopathy. 3. Glioblastoma. 4. Urinary tract infection. 5. Prostatic hypertrophy with urinary retention. 6. Hypertensive heart disease with elevated blood pressure likely due to agitation. PLAN: 1. Mobilize. 2. Discontinue IV fluids. 3. Empiric antibiotics. 4. Advance Flomax. 5. Replace Cordero. 6. Continue current antiseizure regimen. 7. Referred for placement to a rehab facility. Mason Hickman M.D. DR: DEDRICK JOB#: [id number] CC:
[2018-06-05] MEDS: 1/2NS w/KCl 20mEq 1000ml 1,000 ML IV SCH ×2 (06:36→23:03)
[2018-06-05] MEDS: NovoLOG Insulin Flexpen SUBQ SCH ×4 (06:36→20:41)
--- NOTE | 2018-06-05 07:15 | NUR ---
HAND-OFF: Report given to VLAD Peña. Pt is in stable condition; plan of care endorsed.
[2018-06-05 08:00] VITALS: BP 108/65
--- NOTE | 2018-06-05 08:00 | NUR ---
NURSE NOTES: Pt asleep/obtunded in bed, breathing easily on room air. Vital signs stable with SR at 100 on monitor. IV access right hand with 1/2 NS + 20K running at 60 ml/hr. bilateral soft wrist in place with good distal functions. IV site re-wrapped with roller gauze due to pt trying to bite off IV access. Bed left in low position, exit alarm set, side rails up x 3 and call light left near pt's hand.
[2018-06-05] MEDS: levETIRAcetam 1,500 MG in D5W 95 ML IV SCH ×2 (09:11→20:40)
[2018-06-05] MEDS: Docusate 100mg cap ORAL SCH ×2 (09:12→17:10)
[2018-06-05 12:00] VITALS: BP 122/73
--- NOTE | 2018-06-05 12:57 | NUR ---
CASE MANAGEMENT: REVIEW SI: SEIZURE T 98.2 HR 132 RR 21 BP 152/108 SAT 95% ROOM AIR IS: ATENOLOL PO QD CEFAZOLIN IV Q8HR NS IVF @60ML/HR KEPPRA IV Q12HR TELEMETRY UNIT STATUS DCP: PATIENT IS FROM HOME
--- NOTE | 2018-06-05 12:59 | NUR ---
CASE MANAGEMENT: DCPNOTE PER MD ORDER PATIENT REFERRED TO [facility] [phone] PH / FAX [phone] CM WILL FOLLOW UP
--- NOTE | 2018-06-05 13:51 | Neurology Progress Note ---
Interim History Interim History Interim History Mr. Owen feels "better." He is awake and more alert today. He is not agitated. He got some sleep in the early hours of today and slept till 10 AM. He tolerated the Seroquel well. He ate his breakfast. He has been seizure free. He is still aphasic. Review of Systems Neuro Review of Systems Benign. Objective Physical Exam Last Vital Signs Date Time Temp Pulse Resp B/P (MAP) Pulse Ox O2 Delivery O2 Flow Rate FiO2 06/05/18 12:00 97.3 92 20 122/73 (89) 96 06/05/18 09:00 Room Air Neurologic Exam Objective PHYSICAL EXAMINATION: GENERAL: He is a well-developed, well-nourished, pleasant gentleman, lying in bed, in no acute distress. HEAD: Normocephalic with left sided craniotomy defect. NECK: No neck rigidity was observed. EENT: Benign. NEUROLOGICAL EXAMINATION: MENTAL STATUSEXAMINATION: He was awake but and alert. He was oriented to self and May 2018. He was able to recall 3/3 words immediately but could only remember 1/3 in 1 and 3 minutes. He was unable to remember any [place] presidents. He was unable to cooperate for further mental status testing. SPEECH:He had a mild dysarthria. LANGUAGE: He had amixed expressive > receptive aphasia. CRANIAL NERVEEXAMINATION: II: He did blink to threat in all dhillon, but he was unable to cooperate for confrontation testing. III, IV & : The external ocular movements were full and the pupils 3 mm in diameter, equal, round, regular, and reactive sluggishly to light. V: He had normal facial sensations and the temporales, masseters, and pterygoids functioned normally. VII: He had a right 7th central facial paresis. VIII: He was able to hear and had no nystagmus. IX: The palate moved symmetrically on phonation. X: He had no hoarseness of voice. XI: The sternocleidomastoids and trapezii functioned normally. XII: The tongue was in the midline without any fasciculations or atrophy. MOTOR SYSTEM:The tone was normal in all 4 extremities. Examination of muscle mass revealed no focal wasting. Examination of power revealedG5/5 power, except for G4/5 power in the right finger extensors and iliopsoas. SENSORYEXAMINATION: He responded appropriately to light touch.He was unable to cooperate for other sensory modalities. REFLEXES: 1++ on the right and 1+ on the left at the biceps, triceps, brachioradialis, and knees; 0 at both ankles. The plantar responses were flexor bilaterally. COORDINATION: He performed well on [id number] testing.He was unable to perform jsgs-lm-swhy testing. STANCE & GAIT: Were deferred. Impression/Recommendations Diagnostic Impression 1. Mr. Irvin Owen is a 72-year-old,right-handed, gentleman, with a past history of hypertension, hypertensive heart disease, benign prostatic hypertrophy, chronic lymphocytic leukemia, and a skin melanoma, who has also had a stutter all his life. He suddenly had problems expressing himself and these problems worsened over the next few days. He was evaluated in the [facility] Emergency Room on 01/06/2018 with an MRI scan of the brain which revealed findings consistent with a relatively large left parietal glioma with surrounding vasogenic edema and satellite lesions in the right parietal and occipital lobes. He was taken into surgery on 01/07/2018 with near- complete resection of the tumor mass. The surgery was uneventful. He was then sent to [facility] for rehabilitation. He did well with rehabilitation. He was also seen by Dr. Anurag Johnson who started him on a course of radiation therapy and chemotherapy. On 04/19/2018 he was noted to have a generalized tonic clonic seizure at home. He was brought to the , a continuous EEG monitoring for 2 days revealed "mild diffuse background slowing and left focal slowing." No inter -ictal phenomena were seen. He was then seizure-free on Keppra 1 G q 12 hours. 2. On 06/01/2018 he had a generalized tonic clonic seizure at home. He was brought to [facility] and admitted. On 06/02/2018 he had a few more seizures. His dose of Keppra was increased to 1.5 G q 12 hours and he has been seizure-free since then. 3. He feels "better." He is awake and more alert today. He is not agitated. He got some sleep in the early hours of today and slept till 10 AM. He tolerated the Seroquel well. He ate his breakfast. He has been seizure free. He is still aphasic. 4. On neurological examination, at this time, he does have a mixed expressive > receptive aphasia. He also has significant cognitive dysfunction.He also has a right 7th central facial paresis, right finger extensor and iliopsoas weakness, andglobally diminisheddeep tendonreflexes that are slightly brisker on the right than on the left. 5. 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 6. He started to have breakthrough seizures on 06/01/08 but has been seizure- free since 06/02/18. 7. His behavioral problems are significantly better today. Recommendations 1. Continue present management. 2. Management of brain tumor as per the patient's neurosurgeons and Dr. Johnson. 3. Continue Keppra 1.5 G q 12 hours. 4. Continue Seroquel 25 mg q 20:00. 5. Refrain from use of Ativan. 6. Treatment of UTI as per Dr. Hickman. 7. Physical, occupational, speech and language therapy. Jose Greene M.D., M.S.P.H. Neurologist & Clinical Neurophysiologist Jose Greene MD Jun 05, 2018 13:51
[2018-06-05 16:00] VITALS: BP 121/75
--- NOTE | 2018-06-05 19:16 | NUR ---
NURSE NOTES: Report received from VLAD Peña. Pt is lying comfortably in semi fowlers with no signs of distress. Pt is A+Ox2 and denies pain/ SOB. IV site is patent, intact, and running fluids at prescribed rate. Respirations are even and unlabored on room air. Cordero is in place, patent, and draining to gravity at foot of bed. Bilateral soft wrist restraints in place with no sign of skin breakdown. Bed is at lowest position, brakes engaged, siderails x2, bed alarm on, and call light within reach. Pt is in stable condition at this time; will continue to monitor.
[2018-06-05 20:00] VITALS: BP 134/80
[2018-06-05] MEDS: Tamsulosin 0.4mg cap ORAL SCH (20:36)
--- NOTE | 2018-06-05 22:02 | NUR ---
NURSE NOTES: Left message with Dr. Hickman regarding DVT prophylaxis. No new orders given.
[2018-06-06] VITALS: BP 135/80
--- NOTE | 2018-06-06 01:45 | Progress Note ---
DATE: 06/05/2018 INTERNAL MEDICINE PROGRESS NOTE SUBJECTIVE: The patient is awake and alert. Less agitation. Appetite good. No seizures. OBJECTIVE: Blood pressure 122/73, heart rate 92, respiratory rate 20. LUNGS: Clear. CARDIAC: Regular. ABDOMEN: Soft. EXTREMITIES: No edema. NEUROLOGIC: Dysarthria and ataxia unchanged. IMPRESSION: 1. Breakthrough seizures. 2. Glioblastoma multiforme. 3. Urinary tract infection, resolving. 4. Encephalopathy. 5. Hypertension. 6. Prostatic hypertrophy with urinary retention. PLAN: 1. Continue Cordero catheter. 2. Maintain antiseizure regimen. 3. Continue antimicrobials. 4. Physical and occupational therapy. 5. Discharge plan to rehabilitation facility if qualifies. Mason Hickman M.D. DR: Lexa JOB#: [id number] CC:
[2018-06-06] MEDS: ceFAZolin sod 1 GM in D5W 55 ML IVPB SCH ×2 (02:13→10:51)
[2018-06-06 04:00] VITALS: BP 121/71
[2018-06-06] MEDS: NovoLOG Insulin Flexpen SUBQ SCH ×3 (06:09→16:30)
--- NOTE | 2018-06-06 07:26 | NUR ---
NURSE NOTES: I received the patient awake and resting in bed. Patient alert and oriented x2. Soft wrist restraints on the patient. Bed in the lowest position and call light within reach. I will continue to monitor the patient and implement care.
--- NOTE | 2018-06-06 07:38 | NUR ---
HAND-OFF: Report given to VLAD Luna. Pt is in stable condition; plan of care endorsed.
[2018-06-06 07:52] LABS: BASOPHILS % (AUTO) 1.7 % (0.0-2.0); EOSINOPHILS % (AUTO) 0.6 % (0.0-3.0); HEMATOCRIT 34.1 % (42.0-52.0); HEMOGLOBIN 12.4 G/DL (14.2-18.0); LYMPHOCYTES % (AUTO) 28.1 % (20.0-45.0); MEAN CORPUSCULAR VOLUME 97 FL (80-99); MONOCYTES % (AUTO) 7.3 % (1.0-10.0); NEUTROPHILS % (AUTO) 62.3 % (45.0-75.0); PLATELET COUNT 118 K/UL (150-450); RED BLOOD COUNT 3.51 M/UL (4.70-6.10)
[2018-06-06 08:00] VITALS: BP 135/86
[2018-06-06] MEDS: Docusate 100mg cap ORAL SCH ×2 (08:21→17:28)
[2018-06-06 08:27] LABS: ALANINE AMINOTRANSFERASE 15 U/L (12-78); ALBUMIN 2.5 G/DL (3.4-5.0); ALBUMIN/GLOBULIN RATIO 0.8 (1.0-2.7); ALKALINE PHOSPHATASE 63 U/L (46-116); ANION GAP 8 mmol/L (5-15); ASPARTATE AMINO TRANSFERASE 13 U/L (15-37); BILIRUBIN,TOTAL 0.9 MG/DL (0.2-1.0); BLOOD UREA NITROGEN 15 mg/dL (7-18); CALCIUM 8.7 MG/DL (8.5-10.1); CARBON DIOXIDE 25 MMOL/L (21-32); CHLORIDE 101 MMOL/L (98-107); CREATININE 0.7 MG/DL (0.55-1.30); POTASSIUM 3.4 MMOL/L (3.5-5.1); SODIUM 134 MMOL/L (136-145)
[2018-06-06] MEDS ORDERED: Atenolol 25mg tab ORAL SCH (09:00)
[2018-06-06] MEDS: levETIRAcetam 1,500 MG in D5W 95 ML IV SCH (09:31)
[2018-06-06 11:34] VITALS: BP 128/72
--- NOTE | 2018-06-06 11:44 | NUR ---
NURSE NOTES: Patient resting in bed with at the bedside. Patient has pulled-out four IVs this morning and keep removing soft wrist restraints. Bed in the lowest position and call light within reach.
--- NOTE | 2018-06-06 14:42 | NUR ---
Social Service Note SW confirmed with Eliza at [facility] [phone], patient accepted for placement. Room assignment 501, under the care of Dr. Mason Bertrand. Nurse to call report [phone]. Transportation arrangements with [employer] [phone] pick up man time [id number]. Primary nurse notified and SHAKIR.
[2018-06-06] MEDS ORDERED: CEPHALEXIN500 MG ORAL (15:39)
[2018-06-06] MEDS ORDERED: KEPPRA1000 MG ORAL (15:39)
[2018-06-06] MEDS ORDERED: COLACE100 MG ORAL (15:40)
[2018-06-06] MEDS ORDERED: TENORMIN100 MG ORAL (15:40)
[2018-06-06] MEDS ORDERED: SEROQUEL50 MG ORAL (15:41)
[2018-06-06] MEDS ORDERED: TAMSULOSIN HCL0.4 MG ORAL (15:41)
[2018-06-06 15:50] VITALS: BP 115/64
--- NOTE | 2018-06-06 16:00 | NUR ---
NURSE NOTES: Called to give report at [facility], no answer.
--- NOTE | 2018-06-06 16:40 | NUR ---
NURSE NOTES: Called to give report at [facility], no answer.
[2018-06-06] MEDS ORDERED: Cephalexin 500mg cap ORAL SCH (18:00)
--- NOTE | 2018-06-06 19:07 | NUR ---
NURSE NOTES: Patient discharged in stable condition. Report given to VLAD Pimentel at [facility]. Patient discharged with molina catheter in place. at patient's bedside. confirmed patient is in possession of all his belongings. Report given to maintenance truck driver and patient transported via ambulance. Patient does not display any signs of distress or SOB.
--- NOTE | 2018-06-06 19:08 | Physician Query ---
--------- THIS DOCUMENT IS A PERMANENT PART OF THE MEDICAL RECORD --------- PLEASE COMPLETE DOCUMENT BEFORE SIGNING Dear Dr. Hickman Date: 06/06/2018 Exercise your independent professional judgment when responding to query. Question asked do not imply a particular answer is desired/expected. Please click edit button and place "X" in appropriate box "Encephalopathy has been documented in medical records. Patient is admitted with Seizures. Please specify the type of "Encephalopathy": [ ] Metabolic Encephalopathy [ ] Toxic Encephalopathy [ ] Toxic - Metabolic Encephalopathy [ ] Encephalopathy, Other [ ] Clinically Undeterminable Present on Admission: [ ] Yes [ ] No [ ] Clinically Undeterminable Please also document in your Progress Notes and/or Discharge Summary and indicate if the condition was present on admission. Physician signature Date MTDD
--- NOTE | 2018-06-06 19:15 | Progress Note ---
DATE: 06/06/2018 INTERNAL MEDICINE AND CARDIOLOGY SUBJECTIVE: The patient is still confused and agitated at night and has a fall risk. He needs constant orientation, but is directable. He has not had any new seizures. He still has a Cordero catheter in place due to urinary retention. He is being treated with antimicrobials for urinary infection. OBJECTIVE: VITAL SIGNS: Blood pressure 128/72, pulse 75, and respirations 20. NECK: Supple. Jugular venous pressure normal. LUNGS: Clear. CARDIAC: Regular rhythm and rate. Normal S1 and S2 with a fourth heart sound. ABDOMEN: Soft and nontender. EXTREMITIES: No edema. GENITOURINARY: Cordero catheter site without any leaking. LABORATORY DATA: White count 7 and hemoglobin 12. Potassium 3.4, magnesium 1.8, and albumin 2.5. IMPRESSION: 1. Functional decline. 2. Hypokalemia. 3. Dilutional hyponatremia. 4. Moderate to severe protein-calorie malnutrition. 5. Breakthrough seizures, now controlled. 6. Glioblastoma multiforme. 7. Hypertensive heart disease. 8. Prostatic hypertrophy with urinary retention. 9. Urinary tract infection. PLAN: 1. Complete antimicrobials. 2. Remain with Cordero with voiding trial to follow. 3. Transition from IV to oral antiseizure therapy. 4. Physical, occupational, and speech therapies. 5. Continue current antihypertensives. 6. Avoid anti-platelet and anticoagulants in view of bleeding risk. 7. DVT prophylaxis will remain in place. 8. Transfer to acute rehabilitation prior to returning home and being reassess for chemotherapy. Mason Hickman M.D. DR: LUIZ JOB#: [id number] CC:
--- NOTE | 2018-06-07 16:52 | Discharge Summary ---
Discharge Summary Discharge Summary _ DATE OF ADMISSION: 06/01/2018 DATE OF DISCHARGE: 06/06/2018 DISCHARGED BY: REASON FOR ADMISSION: 72 years old male with past medical history of hypertension, glioblastoma, s/p craniotomy, , seizure disorder, presented to emergency department after witnessed tonic-clonic seizure. Upon presentation patient was postictal. Upon evaluation vital signs were stable. CT of the head revealed foci of high attenuation in the right parietal region adjacent to small focal area of encephalomalacia. Findings could represent calcification, but could also represent small foci of subarachnoid or cortical parenchymal hemorrhage. No significant mass-effect. Postsurgical changes of the left parietal region with craniotomy flap and underlying encephalomalacia. Probable occipital midline epidermal inclusion cyst. Laboratory workup revealed mild leukocytosis WBC 12.2 stable hemoglobin and hematocrit. Platelet count 81. Stable electrolytes. BUN 48 creatinine 1.1 Glucose 190. Albumin 3.0 Urinalysis revealed evidence of pyuria and moderate bacteria, +2 protein. Urine toxicology screen was positive for benzodiazepine. Dilantin level was subtherapeutic. Patient was admitted for further management. CONSULTANTS: neurologist Dr. Greene HOSPITAL COURSE: Patient admitted to monitored floor. Seizure precaution were maintained. Keppra dosing was advanced. IV Ativan was on standby as needed for breakthrough seizure/status epilepticus. Patient started on cautious hydration. Neurologist closely followed. Patient follow-up with neurosurgeon at [facility]. 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 B12 and folate level stable. Blood pressure was managed with current regimen enrico and remained stable. Urine culture revealed Enterococci growth. Blood cultures were negative. Patient was treated with antibiotics and completed the course while in the hospital Anti-epileptic medications were changed to oral. Patient was working with physical and speech therapist. Bowel regimen instituted. Patient subsequently [facility]. FINAL DIAGNOSES: Breakthrough seizures Dehydration and hypovolemia Glioblastoma multi-forme Tonic-clonic seizure secondary to glioblastoma Hypertensive heart disease with elevated blood pressure , possibly due to agitation Urinary tract infection History of chronic lymphocytic leukemia Thrombocytopenia , secondary to chemotherapy Toxic encephalopathy BPH with urinary retention Severe protein calorie malnutrition Electrolyte abnormality (hypokalemia, dilutional hyponatremia) DISCHARGE MEDICATIONS: See Medication Reconciliation list. DISCHARGE INSTRUCTIONS: Patient was discharged to [facility] for further management. Follow-up with medical doctor at the facility. I have been assigned to dictate discharge summary for this account. I was not involved in the patient's management. Marian Rice NP Jun 07, 2018 16:52
== END 2018-06-06 19:29 | DRG 100 ==
LOC: EDBD 17:18 → EMR 17:59 → OBSVTOIN 19:37 → 2E 19:37 → EDBEDREQ 21:02 → 2E 21:45
DX: G40.409 Other generalized epilepsy and epileptic syndromes, not intractable, without status epilepticus (principal); G92 Toxic encephalopathy; E43 Unspecified severe protein-calorie malnutrition; C91.10 Chronic lymphocytic leukemia of B-cell type not having achieved remission; C71.9 Malignant neoplasm of brain, unspecified; N39.0 Urinary tract infection, site not specified; E87.1 Hypo-osmolality and hyponatremia; D69.59 Other secondary thrombocytopenia; E86.0 Dehydration; R79.89 Other specified abnormal findings of blood chemistry; N40.1 Benign prostatic hyperplasia with lower urinary tract symptoms; R33.8 Other retention of urine; E87.6 Hypokalemia; I11.9 Hypertensive heart disease without heart failure; K59.00 Constipation, unspecified; Z68.24 Body mass index [BMI] 24.0-24.9, adult
CPT/HCPCS: 36415; 70450; 80053; 80185; 80299; 80307; 81003; 82248; 82607; 82746; 82962; 83735; 85007; 85025; 87040; 87086; 87181; 93005; 96361; 96365; 96375; 99285; J1815; J8499